=== PATIENT | male | born 1960 | race Caucasian/White ===

== ENCOUNTER → 2016-09-19 | Outpatient (REF) | payer BC | LOC: M LAB REF 16:32 | PROVIDERS: ATTEND Physician Assistant | DX: J02.9 Acute pharyngitis, unspecified (principal) ==

== ENCOUNTER 2016-11-05 04:25 | Emergency (ER) | payer BC ==
[~2016-11-05] VITALS: Ht 180.3 cm; Wt 79.4 kg
[2016-11-05] MEDS ORDERED: MORPHINE 4 MG/ML 1ML SYRINGE IV ONE (05:15)
[2016-11-05 05:42] LABS: BASO % 0.6 % (0.0-1.0); EOS # 0.2 K/mm3 (0.0-0.50); EOS % 2.5 % (0.0-3.0); LARGE UNSTAINED CELL # 0.1 K/mm3 (0.0-0.4); LARGE UNSTAINED CELL % 1.8 % (0.0-4.0); LYMPH # 1.5 K/mm3 (1.5-4.5); LYMPH % 23.7 % (24.0-44.0); MEAN CORPUSCULAR HEMOGLOBIN 31.9 pg (27.0-33.0); MEAN CORPUSCULAR VOLUME 93.9 fl (80.0-96.0); MONO # 0.5 K/mm3 (0.0-0.8); MONO % 8.3 % (0.0-5.0); NEUTROPHILS # 3.8 K/mm3 (1.8-7.7); NEUTROPHILS % 63.1 % (36.0-66.0); PLATELET COUNT, AUTOMATED 214 k/mm3 (150-450)
[2016-11-05 05:49] LABS: INR 0.97
[2016-11-05 06:01] LABS: ANION GAP 5 MEQ/L (8-16); BLOOD UREA NITROGEN 15 MG/DL (7-18); CALCIUM LEVEL 8.2 MG/DL (8.5-10.1); CARBON DIOXIDE LEVEL 29 MEQ/L (21-32); CHLORIDE LEVEL 108 MEQ/L (98-107); CREATININE FOR GFR 0.82 MG/DL (0.70-1.30); GLOMERULAR FILTRATION RATE > 60.0 (>56); GLUCOSE, FASTING 109 MG/DL (70-105); POTASSIUM SERUM 3.9 MEQ/L (3.5-5.1); SODIUM LEVEL 142 MEQ/L (136-145)
[2016-11-05] MEDS ORDERED: ISOVUE-370 76% 100ML VIAL (Q9967) As Ordered ONE (06:20)
[2016-11-05] MEDS ORDERED: KETOROLAC 30 MG/ML VIAL (J1885) IV ONE (07:00)
[2016-11-05] MEDS ORDERED: dexameTHASONE 20 MG/5 ML VIAL (J1100) IV ONE (07:00)
--- NOTE | 2016-11-05 07:00 | REPUSA ---
CLINICAL HISTORY: Chest pain, exclude PE. TECHNIQUE: Multiple incremental axial, coronal and oblique images are obtained from the thoracic inle t to the upper abdomen. Intravenous contrast material was administered as per pulmonary embolism prot ocol. COMMENTS: Small left pleural effusion. Passive atelectatic airspace disease of the left lower lobe. Atelectatic airspace disease in the right lower lobe. There is excellent opacification of pulmonary arterial system without evidence for pulmonary embolism . Aorta is of normal caliber without evidence for dissection or aneurysm. There is no evidence of pleural or parenchymal mass. There is no evidence of hilar or mediastinal lym phadenopathy. The heart and great vessels are within normal limits. Images of the upper abdomen demonstrate no evidence of adrenal mass. The bony structures are free of lytic or blastic lesions. Small sliding hiatal hernia. IMPRESSION: No evidence for pulmonary embolism. Small left pleural effusion. Passive atelectatic airspace disease of the left lower lobe. Atelectatic airspace disease of the right lower lobe. Thank you for your kind referral of this patient.
[2016-11-05] MEDS ORDERED: ZITHTAB PO (07:04)
[2016-11-05] MEDS ORDERED: PRED20TA PO (07:05)
[2016-11-05] MEDS ORDERED: KETO10TAB PO (07:06)
[2016-11-05 08:43] VITALS: BP 112/60
--- NOTE | 2016-11-05 09:29 | REP ---
CHEST, TWO VIEWS: Two views of the chest are performed and compared to prior study of 03/16/2006. There is a small left effusion with adjacent left basilar atelectasis/infiltrate. Right lung is clear. Heart is normal in size. Mediastinal silhouette is unremarkable. Old healed fracture is noted in the midshaft of the right clavicle. IMPRESSION: Small left effusion with mild left basilar atelectasis/infiltrate. Signed by Reyes Vargas MD 11/05/2016 02:24 P
--- NOTE | 2016-11-05 13:51 | ECGEPIP ---
Stationary ECG Study [facility] - ED Test Date: 2016-11-05 Pat Name: YADIRA SETH Department: Room: - Gender: M Manager Rehab: YOUNG : 1960 Requested By: BACILIO HAINES Order Number: [id number] Reading MD: Dora Wyatt Measurements Intervals [place] Rate: 47 P: 38 DE: 174 QRS: -6 QRSD: 97 T: 3 QT: 425 QTc: 379 Interpretive Statements SINUS BRADYCARDIA WITH SINUS ARRHYTHMIA NSTTW ABNORMALITY, CLINICAL CORRELATION FOR SUBTLE ST ELEVATION NO PRIOR FOR COMPARISON Electronically Signed On 11-05-2016 13:51:32 EDT by Dora Wyatt
== END 2016-11-05 08:45 | disposition home or self-care (01) ==
LOC: M ED 06:14
DX: R07.81 Pleurodynia (principal); J98.11 Atelectasis; J18.9 Pneumonia, unspecified organism; J90 Pleural effusion, not elsewhere classified; R01.1 Cardiac murmur, unspecified; I49.9 Cardiac arrhythmia, unspecified; R94.31 Abnormal electrocardiogram [ECG] [EKG]; Z87.891 Personal history of nicotine dependence
CPT/HCPCS: 71020; 71275; 80048; 82550; 82553; 85025; 85610; 85730; 93005; 96374; 96375; 99283; J1100; J1885; Q9967

== ENCOUNTER 2016-11-18 08:30 | Emergency (ER) | payer BC, OTHER ==
[~2016-11-18] VITALS: Ht 180.3 cm; Wt 77.1 kg
[~2016-11-18 08:30] MED LIST: KETO10TAB PO; PRED20TA PO; ZITHTAB PO
[2016-11-18 08:59] VITALS: BP 135/88
[2016-11-18] MEDS ORDERED: VALI2TAB PO (10:27)
[2016-11-18] MEDS ORDERED: NAPR500T2 PO (10:27)
[2016-11-18] MEDS ORDERED: ROBA750T4 PO (10:27)
[2016-11-18] MEDS ORDERED: PERC5TAB6 PO (10:27)
[2016-11-18] MEDS ORDERED: PERCOCET 5MG/325MG TAB PO ONE (10:30)
== END 2016-11-18 10:48 | disposition home or self-care (01) ==
LOC: M ED 10:29
DX: S39.012A Strain of muscle, fascia and tendon of lower back, initial encounter (principal); X50.0XXA Overexertion from strenuous movement or load, initial encounter; Y92.89 Other specified places as the place of occurrence of the external cause; Y93.89 Activity, other specified; Y99.0 Civilian activity done for income or pay; Z87.891 Personal history of nicotine dependence

== ENCOUNTER → 2016-12-09 | Outpatient (REF) | payer BC ==
[~2016-12-09] MED LIST changes: +NAPR500T2 PO; +PERC5TAB6 PO; +ROBA750T4 PO; +VALI2TAB PO
== END ==
LOC: M SFHCPLAZ 10:20
PROVIDERS: ATTEND Nurse Practitioner Adult Health
DX: R73.9 Hyperglycemia, unspecified (principal); Z00.00 Encounter for general adult medical examination without abnormal findings; R53.83 Other fatigue
CPT/HCPCS: 36415; 80061; 83036; 84443; G0103

== ENCOUNTER → 2017-11-05 | Outpatient (REF) | payer BC | LOC: M LAB REF 17:43 | DX: D48.5 Neoplasm of uncertain behavior of skin (principal) | CPT/HCPCS: 88305 ==

== ENCOUNTER → 2017-11-24 | Outpatient (REF) | payer BC | LOC: M LAB REF 20:37 | DX: L72.3 Sebaceous cyst (principal) | CPT/HCPCS: 88304 ==

== ENCOUNTER → 2019-08-31 | Outpatient (CLI) | payer BC ==
[~2019-08-31] MED LIST changes: +NAPR-885 PO; -NAPR500T2 PO; +PERC5TAB12 PO; -PERC5TAB6 PO
--- NOTE | 2019-08-31 14:42 | REP ---
PA and lateral chest: Comparison is 11/05/2016. The lung goff are mildly hyperinflated. The lung goff are clear. The cardiac size is normal. The pal, mediastinum, and skeletal structures are unremarkable. Impression: Negative PA and lateral chest. The small left pleural effusion and left basilar atelectasis on the prior study have resolved. Electronically Signed by Reyes Orellana MD 08/31/2019 02:33 P
== END ==
LOC: M WUC 10:30
PROVIDERS: ATTEND Physician Assistant
DX: R07.9 Chest pain, unspecified (principal)

== ENCOUNTER → 2020-06-26 | Outpatient (REF) | payer BC ==
[2020-06-26 17:50] LABS: HEMATOCRIT 43.8 % (42.0-52.0); HEMOGLOBIN 14.1 g/dl (13.5-17.5); MEAN CORPUSCULAR HEMOGLOBIN 30.7 pg (27.0-33.0); MEAN CORPUSCULAR HGB CONC 32.2 g/dl (32.0-36.5); MEAN CORPUSCULAR VOLUME 95.4 fl (80.0-96.0); PLATELET COUNT, AUTOMATED 229 10^3/uL (150-450); RED BLOOD COUNT 4.59 10^6/uL (4.30-6.10); WHITE BLOOD COUNT 5.3 10^3/uL (4.0-10.0)
[2020-06-26 18:06] LABS: HEMOGLOBIN A1c 5.4 %
[2020-06-26 18:29] LABS: ALBUMIN 3.7 GM/DL (3.2-5.2); ALT/SGPT 29 U/L (12-78); BILIRUBIN,TOTAL 0.3 MG/DL (0.2-1.0); BLOOD UREA NITROGEN 16 MG/DL (7-18); CALCIUM LEVEL 8.6 MG/DL (8.5-10.1); CARBON DIOXIDE LEVEL 30 MEQ/L (21-32); CHLORIDE LEVEL 105 MEQ/L (98-107); CREATININE FOR GFR 1.14 MG/DL (0.70-1.30); FERRITIN 123 NG/ML (26-388); GLOMERULAR FILTRATION RATE > 60.0 (>56); GLUCOSE, FASTING 91 MG/DL (70-100); IRON (FE) 84 UG/DL (65-175); PERCENT SATURATION 25.1 % (19.7-50.0); POTASSIUM SERUM 4.3 MEQ/L (3.5-5.1); SODIUM LEVEL 138 MEQ/L (136-145); TOTAL IRON BINDING CAPACITY 334 UG/DL (250-450); TOTAL PROTEIN 6.9 GM/DL (6.4-8.2)
[2020-06-28 13:08] LABS: IgG P18 AB Absent (.); IgG P23 AB Absent (.); IgG P28 AB Absent (.); IgG P30 AB Absent (.); IgG P39 AB Absent (.); IgG P41 AB Absent (.); IgG P45 AB Absent (.); IgG P66 AB Absent (.); IgG P93 AB Absent (.); IgM P23 AB Absent (.); IgM P39 AB Present (.); IgM P41 AB Absent (.); LYME IgG WB INTERPRETATION Negative (.); LYME IgM WB INTERPRETATION Negative (.)
== END ==
LOC: M SFHCPLAZ 15:13
PROVIDERS: ATTEND Nurse Practitioner Adult Health
DX: R53.83 Other fatigue (principal); R73.9 Hyperglycemia, unspecified

== ENCOUNTER → 2020-09-08 | Outpatient (CLI) | payer BC | LOC: M LABSMTC 08:07 | PROVIDERS: ATTEND Anesthesiology | DX: Z01.812 Encounter for preprocedural laboratory examination (principal); Z20.822 Contact with and (suspected) exposure to COVID-19 ==

== ENCOUNTER 2020-09-13 09:12 | Day surgery (SDC) | payer BC ==
[~2020-09-13] VITALS: Ht 180.3 cm; Wt 86.2 kg
[~2020-09-13 09:12] MED LIST changes: +NS 1,000 ML IV ONE
--- OUTSIDE RECORDS SUMMARY | 2020-09-13 09:18 | CCD ---
Author Author [facility] Organization [facility] Address Unknown Phone Unavailable Care Team Providers Care Mortgage Loan Originator Name Role Phone CELISIRENA PA Unavailable Unavailable CELI, SIRENA PA Unavailable Unavailable CELI, SIRENA PA Unavailable Unavailable CELI, SIRENA PA Unavailable Unavailable CELI, SIRENA PA Unavailable Unavailable CELI, SIRENA PA Unavailable Unavailable CELI, SIRENA PA Unavailable Unavailable CELI, SIRENA PA Unavailable Unavailable CELI, SIRENA PA Unavailable Unavailable CELI, SIRENA PA Unavailable Unavailable CELI, SIRENA PA Unavailable Unavailable CELI, SIRENA PA Unavailable Unavailable CELI, SIRENA PA Unavailable Unavailable CELI, SIRENA PA Unavailable Unavailable CELI, SIRENA PA Unavailable Unavailable CELI, SIRENA PA Unavailable Unavailable CELI, SIRENA PA Unavailable Unavailable CELI, SIRENA PA Unavailable Unavailable CELI, SIRENA PA Unavailable Unavailable CELI, SIRENA PA Unavailable Unavailable CELI, SIRENA PA Unavailable Unavailable CELI, SIRENA PA Unavailable Unavailable CELI, SIRENA PA Unavailable Unavailable CELI, SIRENA PA Unavailable Unavailable CELI, SIRENA PA Unavailable Unavailable CELI, SIRENA PA Unavailable Unavailable CELI, SIRENA PA Unavailable Unavailable CELI, SIRENA PA Unavailable Unavailable CELI, SIRENA PA Unavailable Unavailable CELI, SIRENA PA Unavailable Unavailable CELI, SIRENA PA Unavailable Unavailable CELI, SIRENA PA Unavailable Unavailable CELI, SIRENA PA Unavailable Unavailable CELI, SIRENA PA Unavailable Unavailable CELI, SIRENA PA Unavailable Unavailable CELI, SIRENA PA Unavailable Unavailable CELI, SIRENA PA Unavailable Unavailable CELI, SIRENA PA Unavailable Unavailable CELI, SIRENA PA Unavailable Unavailable Re-disclosure Warning The records that you are about to access may contain information from federally-assisted alcohol or drug abuse programs. If such information is present, then the following federally mandated warning applies: This information has been disclosed to you from records protected by federal confidentiality rules (42 CFR part 2). The federal rules prohibit you from making any further disclosure of this information unless further disclosure is expressly permitted by the written consent of the person to whom it pertains or as otherwise permitted by 42 CFR part 2. A general authorization for the release of medical or other information is NOT sufficient for this purpose. The Federal rules restrict any use of the information to criminally investigate or prosecute any alcohol or drug abuse patient.The records that you are about to access may contain highly sensitive health information, the redisclosure of which is protected by Article 27-F of the [facility] Public Health law. If you continue you may have access to information: Regarding HIV / AIDS; Provided by facilities licensed or operated by the [facility] Office of Mental Health; or Provided by the [facility] Office for People With Developmental Disabilities. If such information is present, then the following [facility] mandated warning applies: This information has been disclosed to you from confidential records which are protected by state law. State law prohibits you from making any further disclosure of this information without the specific written consent of the person to whom it pertains, or as otherwise permitted by law. Any unauthorized further disclosure in violation of state law may result in a fine or fdc sentence or both. A general authorization for the release of medical or other information is NOT sufficient authorization for further disc losure. Family History Family Member Name Family Member Gender Family Member Status Date o f Status Description Data Source(s) Unknown Male Problem MEDENT ([facility]) () Unknown Unknown Problem MEDENT ([facility]) Unknown Female Problem MEDENT ([facility]) Encounters Encounter Providers Location Date Indications Data Source(s ) [place] [address] [address] 07/11/2020 12:00:00 AM EST eCW1 ([facility]) [place] [address] [address] 06/26/2020 12:00:00 AM EST eCW1 ([facility]) Outpatient Attender: SIRENA Whiting Prima ry 08/31/2019 08:45:00 AM EST MEDENT ([facility]) Outpatient Attender: SIRENA Whiting Prima ry 08/29/2019 03:40:00 PM EST MEDENT ([facility], [facility]) Medications Medication Brand Name Start Date Product Form Dose Route Admi nistrative Instructions Pharmacy Instructions Status Indications Reaction Description Data Source(s) Fluticasone Propionate 50 MCG/ACT Fluticasone Propionate 50 MCG/ACT 06/26/2020 12:00:00 AM EST 1.0 {spray_in_each_nostril} acti ve Fluticasone Propionate 50 MCG/ACT eCW1 ([facility]) Loratadine 10 MG Oral Tablet Loratadine 10 MG 06/26/2020 12:00:00 A M EST 1.0 {tablet} active Loratadine 10 MG eCW1 ( [facility]) Fluticasone Propionate 50 MCG/ACT Fluticasone Propionate 50 MCG/ACT 06/26/2020 12:00:00 AM EST 1.0 {spray_in_each_nostril} acti ve Fluticasone Propionate 50 MCG/ACT eCW1 ([facility]) Loratadine 10 MG Oral Tablet Loratadine 10 MG 06/26/2020 12:00:00 A M EST 1.0 {tablet} active Loratadine 10 MG eCW1 ( [facility]) Methylprednisolone Sodium Succinate To 125 MG 08/31/2019 1 2:00:00 AM EST completed MEDENT ([facility]) Medication administered onsite Methylprednisolone 4 MG Oral Tablet Methylprednisolone 11/2019 12:00:00 AM EST ORAL active MEDENT ([facility]) 4 mg 08/31/2019 12:00:00 AM EST tablets,dose pack 21 DIRECTED DIRECTED SOLD: 08/31/2019 [facility] Xofluza Xofluza 08/29/2019 12:00:00 AM EST ORAL complet ed MEDENT ([facility], [facility]) Oseltamivir 75 MG Oral Capsule Oseltamivir Phosphate 08/29/2019 12:00:00 AM EST ORAL active MEDENT ( [facility], [facility]) 75 mg 08/29/2019 12:00:00 AM EST capsule 10 TAKE ONE CAPSULE BY MOUTH TWICE A DAY FOR 5 DAYS TAKE ONE CAPSULE BY MOUTH TWICE A DAY FOR 5 DAYS SOLD: 08/29/2019 [facility] Insurance Providers Payer name Policy type / Coverage type Policy ID Covered democrat ID Covered democrat's relationship to priest Policy Priest Plan Information [employer] [place] 302/307 [id number] SP [id number] [employer] [place]/307 [id number] SP [id number] ANSI-Commercial [id number] [employer] (HMO) [id number] Family Dependent [id number] [employer] (HMO) [id number] Family Dependent [id number] [employer] [place] PPO 302/307 [id number] SP [id number] TRAVELERS WORKER COMP [id number] SP [id number] MELISSA MATERIALS [id number] SP [id number] [employer] [place] PPO 302/307 [id number] BCBS/Blue Card Medigap Part B [id number] Self [id number] [employer] Workers Compensation [id number] Self [id number] [employer] Workers Compensation Self BCBS/Blue Card Commercial Self BS [facility] Medigap Part B Family Dependent BS [facility] Commercial Self [employer] BCBS B [id number] S VYA [id number] O UNAVAILABLE UNAVAILA BLE Results ID Date Data Source [id number] 09/08/2020 09:00:00 AM EST [facility] Name Value Range Interpretation Code Description Data Marta rce(s) Supporting Document(s) SARS coronavirus 2 RNA Not Detected [facility] [place] This lab was ordered by [facility] and reported by [facility]. ID Date Data Source TSH 06/26/2020 12:00:00 AM EST eCW1 ([facility]) Name Value Range Interpretation Code Description Data Marta rce(s) Supporting Document(s) 1.260 0.358-3.740 THYROID STIMULATING HORM ONE eCW1 ([facility]) ID Date Data Source TOTAL IRON BINDING CAPACIT 06/26/2020 12:00:00 AM EST eCW1 ( [facility]) Name Value Range Interpretation Code Description Data Marta rce(s) Supporting Document(s) 334 250-450 TOTAL IRON BINDING CAPACI TY eCW1 ([facility]) 84 65-175 IRON (FE) eCW1 ([facility]) 25.1 19.7-50.0 PERCENT SATURATION eCW1 ([facility]) ID Date Data Source LYME WESTERN BLOT SERUM 06/26/2020 12:00:00 AM EST eCW1 ([facility]) Name Value Range Interpretation Code Description Data Marta rce(s) Supporting Document(s) LYME WESTERN BLOT SERUM eCW1 ( [facility]) ID Date Data Source [id number] 06/26/2020 12:00:00 AM EST eCW1 ([facility]) Name Value Range Interpretation Code Description Data Marta rce(s) Supporting Document(s) Hemoglobin A1c/Hemoglobin.total in Blood 5.4 HEMOGLOBIN A1c eCW1 ([facility]) ID Date Data Source FERRITIN 06/26/2020 12:00:00 AM EST eCW1 ([facility]) Name Value Range Interpretation Code Description Data Marta rce(s) Supporting Document(s) 123 93-388 FERRITIN eCW1 ([facility]) ID Date Data Source Comprehensive Metabolic Profile (CMP) 06/26/2020 12:00:00 AM EST eCW1 ([facility]) Name Value Range Interpretation Code Description Data Marta rce(s) Supporting Document(s) 91 70-100 GLUCOSE, FASTING eCW1 ([facility]) 16 7-18 BLOOD UREA NITROGEN eCW1 ([facility]) 1.14 0.70-1.30 CREATININE FOR GFR eCW1 ([facility]) > 60.0 >56 GLOMERULAR FILTRATION RATE eCW 1 ([facility]) 138 136-145 SODIUM LEVEL eCW1 ([facility]) 105 98-107 CHLORIDE LEVEL eCW1 ([facility]) 30 21-32 CARBON DIOXIDE LEVEL eCW1 ([facility]) 4.3 3.5-5.1 POTASSIUM SERUM eCW1 ([facility]) 8.6 8.5-10.1 CALCIUM LEVEL eCW1 ([facility]) 64 45-117 ALKALINE PHOSPHATASE eCW1 ([facility]) 29 12-78 ALT/SGPT eCW1 ([facility]) 19 7-37 AST/SGOT eCW1 ([facility]) 0.3 0.2-1.0 BILIRUBIN,TOTAL eCW1 ([facility]) 6.9 6.4-8.2 TOTAL PROTEIN eCW1 ([facility]) 3.7 3.2-5.2 ALBUMIN eCW1 ([facility]) 1.2 ALBUMIN/GLOBULIN RATIO eCW1 ([facility]) ID Date Data Source CBC - Complete Blood Count 06/26/2020 12:00:00 AM EST eCW1 ( [facility]) Name Value Range Interpretation Code Description Data Marta rce(s) Supporting Document(s) 5.3 4.0-10.0 WHITE BLOOD COUNT eCW1 ([facility]) 4.59 4.30-6.10 RED BLOOD COUNT eCW1 ([facility]) 14.1 13.5-17.5 HEMOGLOBIN eCW1 ([facility]) 95.4 80.0-96.0 MEAN CORPUSCULAR VOLUME e CW1 ([facility]) 43.8 42.0-52.0 HEMATOCRIT eCW1 ([facility]) 32.2 32.0-36.5 MEAN CORPUSCULAR HGB CONC eCW1 ([facility]) 229 150-450 PLATELET COUNT, AUTOMATED eCW1 ([facility]) 11.8 11.5-14.5 RED CELL DISTRIBUTION WID TH eCW1 ([facility]) 30.7 27.0-33.0 MEAN CORPUSCULAR HEMOGLOB IN eCW1 ([facility]) Procedure Social History Code Duration Value Status Description Data Source(s ) Smoking 06/26/2020 12:00:00 AM EST Never Smoker completed Never S moker eCW1 ([facility]) Smoking 06/26/2020 12:00:00 AM EST Never Smoker completed Never S moker eCW1 ([facility]) Vital Signs ID Date Data Source UNK Name Value Range Interpretation Code Description Data Source(s) Diastolic blood pressure 78 mm[Hg] 78 mm[Hg] eCW1 ([facility]) Systolic blood pressure 132 mm[Hg] 132 mm[Hg] e CW1 ([facility]) Body temperature 98.7 [degF] 98.7 [degF] eCW1 ( [facility]) Respiratory rate 18 /min 18 /min eCW1 ([facility]) Heart rate 72 /min 72 /min eCW1 ([facility]) Body mass index (BMI) [Ratio] 26.92 kg/m2 26.92 kg/m2 eCW1 ([facility]) Body height [in_i] eCW1 ([facility]) Body weight 193 [lb_av] 193 [lb_av] eCW1 ([facility]) Body mass index (BMI) [Ratio] 25.8 kg/m2 25.8 k g/m2 MEDENT ([facility]) Body height 71 [in_i] 71 [in_i] MEDENT ([facility]) 5'11" Body weight 185.00 [lb_av] 185.00 [lb_av] MEDEN T ([facility], [facility]) Body temperature 97.8 [degF] 97.8 [degF] MEDENT ([facility], [facility]) Oxygen saturation in Arterial blood by Pulse oximetry 98 % 98 % [facility] Respiratory rate 18 /min 18 /min [facility]) Heart rate 75 /min 75 /min [facility] ([facility], [facility]) Diastolic blood pressure 94 mm[Hg] 94 mm[Hg] MEDENT ([facility], [facility]) Systolic blood pressure 135 mm[Hg] 135 mm[Hg] [facility]) Body mass index (BMI) [Ratio] 25.8 kg/m2 25.8 k g/m2 [facility] ([facility], [facility]) Body height 71 [in_i] 71 [in_i] [facility] ([facility], [facility]) 5'11" Body weight 185.00 [lb_av] 185.00 [lb_av] MEDEN T ([facility], [facility]) Body temperature 98.0 [degF] 98.0 [degF] [facility]) Oxygen saturation in Arterial blood by Pulse oximetry 94 % 94 % [facility], [facility]) Respiratory rate 16 /min 16 /min [facility] ( [facility], [facility]) Heart rate 81 /min 81 /min [facility] ([facility], [facility]) Diastolic blood pressure 89 mm[Hg] 89 mm[Hg] [facility] ([facility], [facility]) Systolic blood pressure 141 mm[Hg] 141 mm[Hg] [facility]) Patient Treatment Plan of Care Planned Activity Planned Date Details Description Data Source (s) Fluticasone Propionate 50 MCG/ACT 06/26/2020 12:00:00 AM EST eCW1 ([facility]) Loratadine 10 MG Oral Tablet 06/26/2020 12:00:00 AM EST eCW1 ([facility]) Fluticasone Propionate 50 MCG/ACT 06/26/2020 12:00:00 AM EST eCW1 ([facility]) Loratadine 10 MG Oral Tablet 06/26/2020 12:00:00 AM EST eCW1 ([facility])
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
--- OUTSIDE RECORDS SUMMARY | 2020-09-13 09:18 | CCD ---
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 Name Role Phone Baljitmonica Christal Unavailable PROBLEMS Type Condition ICD9-CM Code OFE36-LS Code Onset Dates Condition S tatus SNOMED Code Notes Problem Family history of prostate cancer in father Z80.42 Active 316544130 Problem Skin lesion L98.9 Active 11073843 Problem Midline low back pain without sciatica, unspecified ch ronicity M54.5 Active 195207280 Problem Elevated blood sugar R73.9 Active 91198008 Problem History of tobacco abuse Z87.891 Active 2067137 064052 Problem Fatigue, unspecified type R53.83 Active 473342 01 ALLERGIES No Known Allergies ENCOUNTERS from 1960 to 2020-07-02 Encounter Location Date Provider Diagnosis [address] [address] Jun, Christal Ceron Well adult exam Z00.00 ; Fatigue, unspec ified type R53.83 ; Lack of interest R68.89 ; History of tobacco abuse Z87.891 ; Elevated blood sugar R73.9 ; Altered bowel function R19.8 ; Dysfunction of both eustachian tubes H69.83 and Impacted cerumen of both ears H61.23 IMMUNIZATIONS No Information SOCIAL HISTORY Tobacco Use: Social History Observation Description Date Details (start date - stop date) Never Smoker Sex Assigned At : Social History Observation Description Sex Assigned At Unknown Education: Question Answer Notes Level of Education: High School [employer] [facility] Language: Question Answer Notes Languages spoken: [place] Confucianist: Question Answer Notes Confucianist 23 Confucianism No temple beliefs that would impact health care. Sexual [...] REASON FOR REFERRAL No Information VITAL SIGNS Weight 193 lbs Jun, Height 5'11" in Jun, BMI 26.92 kg/m2 Jun, Heart Rate 72 /min Jun, Respiratory Rate 18 /min Jun, Temperature 98.7 degrees Fahrenheit Jun, Oximetry 98 Jun, Blood pressure systolic 132 mm Hg Jun, Blood pressure diastolic 78 mm Hg Jun, MEDICATIONS Medication SIG (Take, Route, Frequency, Duration) Notes Start Da te End Date Status Loratadine 10 MG 1 tablet Orally Once a day for 30 day(s) Jun, Active Fluticasone Propionate 50 MCG/ACT 1 spray in each nost ril Nasally Once a day for 30 day(s) Jun, Active PROCEDURES No Information RESULTS Component Value Reference Range CBC - Complete Blood Count Reviewed date:07/01/2020 09:08:23 Interpretation:Normal Performing Lab:[facility], [facility] [id number] , ,[place] [address] WHITE BLOOD COUNT 5.3 4.0-10.0 RED BLOOD COUNT 4.59 4.30-6.10 HEMOGLOBIN 14.1 13.5-17.5 HEMATOCRIT 43.8 42.0-52.0 MEAN CORPUSCULAR VOLUME 95.4 80.0-96.0 MEAN CORPUSCULAR HEMOGLOBIN 30.7 27.0-33.0 MEAN CORPUSCULAR HGB CONC 32.2 32.0-36.5 RED CELL DISTRIBUTION WIDTH 11.8 11.5-14.5 PLATELET COUNT, AUTOMATED 229 150-450 Comprehensive Metabolic Profile (CMP) Reviewed date:07/01/2020 09:06:50 Interpretation:Normal Performing Lab:[facility] [address] [address] , ,[place] [address] GLUCOSE, FASTING 91 70-100 BLOOD UREA NITROGEN 16 7-18 CREATININE FOR GFR 1.14 0.70-1.30 GLOMERULAR FILTRATION RATE > 60.0 >56 SODIUM LEVEL 138 136-145 POTASSIUM SERUM 4.3 3.5-5.1 CHLORIDE LEVEL 105 98-107 CARBON DIOXIDE LEVEL 30 21-32 CALCIUM LEVEL 8.6 8.5-10.1 AST/SGOT 19 7-37 ALT/SGPT 29 12-78 ALKALINE PHOSPHATASE 64 45-117 BILIRUBIN,TOTAL 0.3 0.2-1.0 TOTAL PROTEIN 6.9 6.4-8.2 ALBUMIN 3.7 3.2-5.2 ALBUMIN/GLOBULIN RATIO 1.2 FERRITIN Reviewed date:07/01/2020 09:09:21 Interpretation:Normal Performing Lab:[facility] [address] [address] , ,[place] [address] FERRITIN 123 26-388 HEMOGLOBIN A1c Reviewed date:07/01/2020 09:06:33 Interpretation:Normal Performing Lab:[facility] [address] [address] , ,[place] [address] HEMOGLOBIN A1c 5.4 ESTIMATED AVERAGE GLUCOSE 108 60-110 LYME WESTERN BLOT SERUM Reviewed date:07/01/2020 09:08:04 Interpretation:Negative Performing Lab:[facility], [facility] [address] [place] [address] , ,[place] [address] TOTAL IRON BINDING CAPACIT Reviewed date:07/01/2020 09:08:41 Interpretation:Normal Performing Lab:[facility] [address] [address] , ,[place] [address] IRON (FE) 84 65-175 TOTAL IRON BINDING CAPACITY 334 250-450 PERCENT SATURATION 25.1 19.7-50.0 TSH Reviewed date:07/01/2020 09:09:00 Interpretation:Normal Performing Lab:[facility], [facility] [id number] , ,[place] [address] THYROID STIMULATING HORMONE 1.260 0.358-3.740 REASON FOR VISIT Annual Wellness , last seen 10/13/17 MEDICAL (GENERAL) HISTORY Type Description Date Medical [...] Treatment Notes Treatm ent Clinical Notes Jun, Well adult exam (ICD-10 - Z00.00) age appropriate anticipatory guidance given, per USPSTF recommendations; idiscussed plans for implementing improvement in identified areas Jun, Fatigue, unspecified type (ICD-10 - R53.83) discussed with pt will assess labs discussed with pt ? sleep apnea pt refuses referral Jun, Lack of interest (ICD-10 - R68.89) discussed with pt. discussed ? depression pt flately refuses that he is depressed Jun, History of tobacco abuse (ICD-10 - Z87.891) Jun, Elevated blood sugar (ICD-10 - R73.9) reassess hga1c Jun, Altered bowel function (ICD-10 - R19.8) request screening colonoscopy he also has issues with constipation discussed fiber, metamucil Jun, Dysfunction of both eustachian tubes (ICD-10 - H 69.83) will treat with flonase and lortadine Jun, Impacted cerumen of both ears (ICD-10 - H61.23) pt states he will clean them at home/ Jun, Other follow up sched uled PLAN OF TREATMENT Medication Medication Name Sig Start Date Stop Date Loratadine 10 MG 1 tablet Orally Once a day for 30 day(s) Jun Fluticasone Propionate 50 MCG/ACT 1 spray in each nost ril Nasally Once a day for 30 day(s) Jun, Treatment Notes Assessment Notes Clinical Notes Well adult exam age appropriate anti cipatory guidance given, per USPSTF recommendations; idiscussed plans for implementing improvement in identified areas Fatigue, unspecified type discussed with pt will assess labs discussed with pt ? sleep apnea pt refuses referral Lack of interest discussed with pt. d iscussed ? depression pt flately refuses that he is depressed Elevated blood sugar reassess hga1c Altered bowel function request screening colonoscopy he also has issues with constipation discussed fiber, metamucil Dysfunction of both eustachian tubes jude l treat with flonase and lortadine Impacted cerumen of both ears pt states he will clean them at home/ Treatment Notes Test Name Order Date IRON (FE) 2020-07-02 Next Appt Details Christal 07/10/20 4pm book issues Reason: Insurance Providers Payer Name Payer Address Payer Phone Insured Name Patient Relati onship to Insured Coverage Start Date Coverage End Date BCBS [place] [employer] PPO [phone] [facility] [employer] [address] YADIRA NICOLAS self
[2020-09-13] MEDS ORDERED: propofoL 200 MG/20 ML VIAL As Ordered ONE (11:02)
--- NOTE | 2020-09-13 11:34 | ROOR ---
Patient Name: Ward Nicolas Procedure Date: 09/13/2020 10:38 AM Date of : 1960 Age: 59 [facility] Gender: Male Note Status: Finalized Procedure: Colonoscopy Indications: Screening for colorectal malignant neoplasm Providers: Sukhdeep Wheeler MD Referring MD: Christal Ceron NP Requesting Provider: Medicines: Monitored Anesthesia Care Complications: No immediate complications. Procedure: Pre-Anesthesia Assessment: - Prior to the procedure, a History and Physical was performed, and patient medications and allergies were reviewed. The patient is competent. The risks and benefits of the procedure and the sedation options and risks were discussed with the patient. All questions were answered and informed consent was obtained. Patient identification and proposed procedure were verified by the physician, the nurse and the anesthesiologist in the procedure room. Mental Status Examination: alert and oriented. Airway Examination: normal oropharyngeal airway and neck mobility. Respiratory Examination: clear to auscultation. CV Examination: normal. Prophylactic Antibiotics: The patient does not require prophylactic antibiotics. Prior Anticoagulants: The patient has taken no previous anticoagulant or antiplatelet agents. ASA Grade Assessment: II - A patient with mild systemic disease. After reviewing the risks and benefits, the patient was deemed in satisfactory condition to undergo the procedure. The anesthesia plan was to use monitored anesthesia care (MAC). Immediately prior to administration of medications, the patient was re-assessed for adequacy to receive sedatives. The heart rate, respiratory rate, oxygen saturations, blood pressure, adequacy of pulmonary ventilation, and response to care were monitored throughout the procedure. The physical status of the patient was re-assessed after the procedure. The Colonoscope was introduced through the anus and advanced to the terminal ileum, with identification of the appendiceal orifice and IC valve. The colonoscopy was performed without difficulty. The patient tolerated the procedure well. The quality of the bowel preparation was good. The terminal ileum, ileocecal valve, appendiceal orifice, and rectum were photographed. Scope insertion time was 2 minutes. Scope withdrawal time was 14 minutes. The total duration of the procedure was 20 minutes. Findings: The perianal and digital rectal examinations were normal. Pertinent negatives include normal sphincter tone. The terminal ileum appeared normal. Many sessile polyps were found in the rectum, sigmoid colon, descending colon, transverse colon and ascending colon. The polyps were 6 to 15 mm in size. These polyps were removed with a hot snare. Resection and retrieval were complete. Verification of patient identification for the specimen was done by the physician and nurse using the patient's name, date and medical record number. Estimated blood loss was minimal. Non-bleeding external and internal hemorrhoids were found during retroflexion. The hemorrhoids were medium-sized. Impression: - The examined portion of the ileum was normal. - Many 6 to 15 mm polyps in the rectum, in the sigmoid colon, in the descending colon, in the transverse colon and in the ascending colon, removed with a hot snare. Resected and retrieved. - Non-bleeding external and internal hemorrhoids. Recommendation: - Patient has a contact number available for emergencies. The signs and symptoms of potential delayed complications were discussed with the patient. Return to normal activities tomorrow. Written discharge instructions were provided to the patient. - Clear liquid diet today, then advance as tolerated to high fiber diet. - Continue present medications. - Miralax 1 capful (17 grams) in 8 ounces of water PO daily for 5 days. - Await pathology results. - Repeat colonoscopy in 1 year for surveillance of multiple polyps. - Telephone GI clinic for pathology results in 2 weeks. - Return to GI clinic in 1 year. - Return to primary care physician. Procedure Code(s): --- Professional --- 67453, Colonoscopy, flexible; with removal of tumor(s), polyp(s), or other lesion(s) by snare technique Diagnosis Code(s): --- Professional --- Z12.11, Encounter for screening for malignant neoplasm of colon K64.8, Other hemorrhoids K62.1, Rectal polyp K63.5, Polyp of colon CPT copyright 2019 [employer]. All rights reserved. The codes documented in this report are preliminary and upon hardness tester review may be revised to meet current compliance requirements. Sukhdeep Wheeler MD Sukhdeep Wheeler MD 09/13/2020 11:33:52 AM Electronically signed by Sukhdeep Wheeler MD Number of Addenda: 0 Note Initiated On: 09/13/2020 10:38 AM Estimated Blood Loss: Estimated blood loss was minimal.
[2020-09-13 11:50] VITALS: BP 110/80
== END 2020-09-13 12:05 | disposition home or self-care (01) ==
LOC: M OPP 09:12
PROVIDERS: ATTEND Internal Medicine Gastroenterology
DX: Z12.11 Encounter for screening for malignant neoplasm of colon (principal); D12.2 Benign neoplasm of ascending colon; K64.8 Other hemorrhoids; Z87.891 Personal history of nicotine dependence; Z80.42 Family history of malignant neoplasm of prostate; Z80.1 Family history of malignant neoplasm of trachea, bronchus and lung

== ENCOUNTER → 2021-03-11 | Outpatient (CLI) | payer BC ==
[~2021-03-11] MED LIST changes: -NS 1,000 ML IV ONE
--- NOTE | 2021-03-11 22:34 | REP ---
INDICATION: LUNG CANCER SCREENING COMPARISON: 11/05/2016 TECHNIQUE: Axial noncontrast images from the thoracic inlet to the upper abdomen using low-dose lung screening technique (LDCT). FINDINGS: Lung goff are relatively well aerated and essentially clear. Minimal scarring identified along the medial right middle lobe and left base. No acute consolidation, significant nodule, or mass identified. No effusion. No pneumothorax. Tracheobronchial tree is patent. Mediastinum is grossly normal. IMPRESSION: Lung-RADS category 1. Management recommendations include annual low-dose CT surveillance. <Electronically signed by Tim James > 03/11/21 0532
== END ==
LOC: M RAD 15:48
PROVIDERS: ATTEND Nurse Practitioner Adult Health
DX: Z12.2 Encounter for screening for malignant neoplasm of respiratory organs (principal)

== ENCOUNTER → 2021-10-03 | Outpatient (CLI) | payer BC | LOC: M LABSMTC 10:13 | PROVIDERS: ATTEND Anesthesiology | DX: Z01.818 Encounter for other preprocedural examination (principal); Z11.52 Encounter for screening for COVID-19 ==

== ENCOUNTER 2021-10-08 10:19 | Day surgery (SDC) | payer BC ==
[~2021-10-08] VITALS: Ht 180.3 cm; Wt 81.6 kg
[~2021-10-08 10:19] MED LIST changes: +LIDOCAINE 2% 100MG/5ML SDV (FOR ANES.) As Ordered ONE; +NS 1,000 ML IV ONE; +propofoL 500 MG/50 ML VIAL As Ordered ONE
[2021-10-08 12:33] VITALS: BP 125/79
== END 2021-10-08 12:39 | disposition home or self-care (01) ==
LOC: M OPP 10:19
PROVIDERS: ATTEND Internal Medicine Gastroenterology
DX: K64.8 Other hemorrhoids (principal); Z86.010 Personal history of colon polyps; Z09 Encounter for follow-up examination after completed treatment for conditions other than malignant neoplasm

== ENCOUNTER → 2021-11-28 | Outpatient (CLI) | payer BC ==
[~2021-11-28] MED LIST changes: -LIDOCAINE 2% 100MG/5ML SDV (FOR ANES.) As Ordered ONE; -NS 1,000 ML IV ONE; -propofoL 500 MG/50 ML VIAL As Ordered ONE
[2021-11-28 10:58] LABS: ALBUMIN 3.9 GM/DL (3.2-5.2); ALT/SGPT 33 U/L (12-78); BILIRUBIN,TOTAL 0.4 MG/DL (0.2-1.0); BLOOD UREA NITROGEN 20 MG/DL (7-18); CALCIUM LEVEL 9.8 MG/DL (8.5-10.1); CARBON DIOXIDE LEVEL 29 MEQ/L (21-32); CHLORIDE LEVEL 107 MEQ/L (98-107); CHOLESTEROL LEVEL 283 MG/DL (<200); CHOLESTEROL RISK RATIO 5.775 (<5); CREATININE FOR GFR 0.85 MG/DL (0.70-1.30); GLOMERULAR FILTRATION RATE > 60.0 (>56); GLUCOSE, FASTING 105 MG/DL (70-100); HDL CHOLESTEROL 49 MG/DL (>40); LDL CHOLESTEROL 209 MG/DL (<100); NON-HDL-C 234 MG/DL; POTASSIUM SERUM 5.5 MEQ/L (3.5-5.1); SODIUM LEVEL 140 MEQ/L (136-145); TOTAL PROTEIN 7.2 GM/DL (6.4-8.2); TRIGLYCERIDES LEVEL 126 MG/DL (<150)
[2021-11-28 11:42] LABS: HEMOGLOBIN A1c 5.5 %
== END ==
LOC: M PLALAB 08:02
PROVIDERS: ATTEND Nurse Practitioner Adult Health
DX: Z00.00 Encounter for general adult medical examination without abnormal findings (principal); R73.9 Hyperglycemia, unspecified; Z12.5 Encounter for screening for malignant neoplasm of prostate; Z13.220 Encounter for screening for lipoid disorders
CPT/HCPCS: 36415; 80053; 80061; 83036; G0103

== ENCOUNTER → 2022-12-01 | Outpatient (CLI) | payer BC | LOC: M RAD 08:30 | PROVIDERS: ATTEND Nurse Practitioner Adult Health | DX: Z87.891 Personal history of nicotine dependence (principal) ==

== ENCOUNTER 2023-08-06 09:32 | Emergency (ER) | payer BC, OTHER ==
[~2023-08-06] VITALS: Ht 180.3 cm; Wt 91.0 kg
[2023-08-06 11:43] VITALS: BP 128/86; TEMP 97; O2SAT 97
== END 2023-08-06 11:44 | disposition home or self-care (01) ==
LOC: M ED 09:32
DX: S59.902A Unspecified injury of left elbow, initial encounter (principal); W22.8XXA Striking against or struck by other objects, initial encounter; Z87.891 Personal history of nicotine dependence; Y92.9 Unspecified place or not applicable; Y93.9 Activity, unspecified; Y99.0 Civilian activity done for income or pay

== ENCOUNTER → 2023-08-13 | Outpatient (CLI) | payer BC | LOC: M RAD 15:49 | PROVIDERS: ATTEND Nurse Practitioner Adult Health | DX: N50.89 Other specified disorders of the male genital organs (principal); N44.2 Benign cyst of testis ==

== ENCOUNTER → 2023-09-05 | Outpatient (CLI) | payer BC ==
[2023-09-05 11:25] LABS: APPEARANCE, URINE CLEAR (CLEAR); BACTERIA, URINE AUTO NEGATIVE (NEGATIVE); BILIRUBIN, URINE AUTO NEGATIVE (NEGATIVE); BLOOD, URINE BLOOD NEGATIVE (NEGATIVE); COLOR, URINE YELLOW (YELLOW); GLUCOSE, URINE (UA) AUTO NEGATIVE (NEGATIVE); KETONE, URINE AUTO NEGATIVE (NEGATIVE); LEUKOCYTE ESTERASE, URINE AUTO NEGATIVE (NEGATIVE); MUCUS, URINE SMALL (NEGATIVE); NITRITE, URINE AUTO NEGATIVE (NEGATIVE); PROTEIN, URINE AUTO NEGATIVE (NEGATIVE); RBC, URINE AUTO 0 /HPF (0-3); SPECIFIC GRAVITY URINE AUTO 1.019 (1.002-1.035); SQUAMOUS EPITHELIAL CELL UR AU 0 /HPF (0-6); UROBILINOGEN, URINE AUTO 0.2 mg/dL (0.0-2.0); WBC, URINE AUTO 0 /HPF (0-3)
[2023-09-08 23:07] LABS: TESTOSTERONE FREE (DIRECT) 10.3 pg/mL (6.6-18.1)
== END ==
LOC: M LAB 09:56
PROVIDERS: ATTEND Physician Assistant
DX: R53.83 Other fatigue (principal)

== ENCOUNTER → 2023-10-05 | Outpatient (CLI) | payer BC ==
[~2023-10-05] MED LIST changes: +ROSU10TA6 PO
[2023-10-05 13:47] LABS: BASO # 0.1 10^3/uL (0.0-0.2); BASO % 1.3 % (0.0-1.0); EOS # 0.1 10^3/uL (0.0-0.5); EOS % 1.9 % (0.0-3.0); HEMATOCRIT 45.9 % (42.0-52.0); HEMOGLOBIN 15.6 g/dl (13.5-17.5); LYMPH # 1.5 10^3/uL (1.5-5.0); LYMPH % 31.2 % (24.0-44.0); MEAN CORPUSCULAR VOLUME 94.3 fl (80.0-96.0); MONO # 0.4 10^3/uL (0.0-0.8); MONO % 9.5 % (2.0-8.0); NEUTROPHILS # 2.6 10^3/uL (1.5-8.5); NEUTROPHILS % 55.9 % (36.0-66.0); PLATELET COUNT, AUTOMATED 240 10^3/uL (150-450); RED BLOOD COUNT 4.87 10^6/uL (4.30-6.10); WHITE BLOOD COUNT 4.7 10^3/uL (4.0-10.0)
[2023-10-05 14:02] LABS: HEMOGLOBIN A1c 5.6 % (4.0-6.0)
[2023-10-05 14:14] LABS: ALBUMIN 3.8 G/DL (3.2-5.2); ALKALINE PHOSPHATASE 64 U/L (46-116); ALT/SGPT 25 U/L (7.0-40); AST/SGOT 17 U/L (<34); BILIRUBIN,TOTAL 0.6 MG/DL (0.3-1.2); BLOOD UREA NITROGEN 15 MG/DL (9-23); CALCIUM LEVEL 9.1 MG/DL (8.3-10.6); CARBON DIOXIDE LEVEL 31 MMOL/L (20-31); CHLORIDE LEVEL 102 MMOL/L (98-107); CHOLESTEROL LEVEL 237 MG/DL (<200); CHOLESTEROL RISK RATIO 5.04 (<5); CREATININE FOR GFR 0.89 MG/DL (0.70-1.30); GLOMERULAR FILTRATION RATE > 60.0 (>49); GLUCOSE, FASTING 97 MG/DL (74-106); POTASSIUM SERUM 5.3 MMOL/L (3.5-5.1); PSA SCREENING 3.11 NG/ML (< 4.00); SODIUM LEVEL 138 MMOL/L (136-145); TOTAL PROTEIN 7.1 G/DL (5.7-8.2); TRIGLYCERIDES LEVEL 185 MG/DL (<150)
[2023-10-05 14:16] LABS: FREE T4 1.06 NG/DL (0.89-1.76); THYROID STIMULATING HORMONE 1.387 uIU/ML (0.55-4.78)
== END ==
LOC: M PLALAB 11:18
PROVIDERS: ATTEND Family Medicine
DX: R73.01 Impaired fasting glucose (principal); E78.2 Mixed hyperlipidemia; Z80.42 Family history of malignant neoplasm of prostate; Z87.891 Personal history of nicotine dependence
CPT/HCPCS: 36415; 80053; 80061; 83036; 84439; 84443; 85025; G0103

== ENCOUNTER → 2023-10-05 | Outpatient (REF) | payer BC | LOC: M SFHCPLAZ 14:34 | PROVIDERS: ATTEND Family Medicine | DX: Z53.20 Procedure and treatment not carried out because of patient's decision for unspecified reasons (principal) ==

== ENCOUNTER → 2023-12-04 | Outpatient (CLI) | payer BC ==
[~2023-12-04] MED LIST changes: -ROSU10TA6 PO; +ROSU10TA61 PO
[2023-12-04 16:02] LABS: HEMATOCRIT 42.7 % (42.0-52.0); HEMOGLOBIN 14.7 g/dl (13.5-17.5); MEAN CORPUSCULAR HEMOGLOBIN 32.8 pg (27.0-33.0); MEAN CORPUSCULAR HGB CONC 34.4 g/dl (32.0-36.5); MEAN CORPUSCULAR VOLUME 95.3 fl (80.0-96.0); PLATELET COUNT, AUTOMATED 263 10^3/uL (150-450); RED BLOOD COUNT 4.48 10^6/uL (4.30-6.10)
[2023-12-04 16:29] LABS: ALBUMIN 3.6 G/DL (3.2-5.2); ALKALINE PHOSPHATASE 78 U/L (46-116); ALT/SGPT 24 U/L (7.0-40); AST/SGOT 18 U/L (<34); BILIRUBIN,TOTAL 0.5 MG/DL (0.3-1.2); BLOOD UREA NITROGEN 17 MG/DL (9-23); CALCIUM LEVEL 9.1 MG/DL (8.3-10.6); CARBON DIOXIDE LEVEL 28 MMOL/L (20-31); CHLORIDE LEVEL 107 MMOL/L (98-107); CREATININE FOR GFR 0.96 MG/DL (0.70-1.30); GLOMERULAR FILTRATION RATE > 60.0 (>49); GLUCOSE, FASTING 78 MG/DL (74-106); POTASSIUM SERUM 4.5 MMOL/L (3.5-5.1); SODIUM LEVEL 139 MMOL/L (136-145)
== END ==
LOC: M PLALAB 11:53
PROVIDERS: ATTEND Urology
DX: N50.3 Cyst of epididymis (principal)

== ENCOUNTER 2023-12-07 06:48 | Day surgery (SDC) | payer BC ==
[~2023-12-07] VITALS: Ht 180.3 cm; Wt 90.0 kg
[2023-12-07] MEDS ORDERED: LR 1,000 ML IV SCH ×2 (06:50→09:25)
[2023-12-07] MEDS: BACITRACIN OINTMENT 30GM TUBE As Ordered ONE (08:28)
[2023-12-07] MEDS: ceFAZolin SOD 2 GM in IV 1 EA IV ONE (08:46)
[2023-12-07] MEDS ORDERED: fentaNYL 100 MCG/2 ML INJECTION As Ordered ONE (08:57)
[2023-12-07] MEDS ORDERED: MIDAZOLAM INJ 2MG/2ML VIAL As Ordered ONE (08:57)
[2023-12-07] MEDS ORDERED: ONDANSETRON 4MG 2ML VIAL As Ordered ONE (08:57)
[2023-12-07] MEDS ORDERED: propofoL 200 MG/20 ML VIAL As Ordered ONE (08:57)
[2023-12-07] MEDS ORDERED: LIDOCAINE 2% 100MG/5ML SDV (FOR ANES.) As Ordered ONE (08:57)
[2023-12-07] MEDS ORDERED: dexmedeTOMIDine (4MCG/ML)200MCG/50ML BTL (PRECEDEX) As Ordered ONE (08:57)
[2023-12-07] MEDS ORDERED: ACETAMINOPHEN 1000MG 100ML IV BAG As Ordered ONE (08:57)
[2023-12-07] MEDS ORDERED: METOCLOPRAMIDE INJ 10MG/2ML VIAL As Ordered ONE (08:57)
[2023-12-07] MEDS: LIDOCAINE 1% SDV 30ML VIAL As Ordered ONE (09:19)
[2023-12-07] MEDS ORDERED: oxyCODONE 5MG TAB PO PRN (09:25)
[2023-12-07] MEDS ORDERED: fentaNYL 100 MCG/2 ML INJECTION IV PRN (09:25)
[2023-12-07] MEDS ORDERED: HYDROMORPHONE HCL 0.5 MG/ 0.5 ML SYRINGE IV PRN (09:25)
[2023-12-07] MEDS ORDERED: ONDANSETRON 4MG 2ML VIAL IV PRN (09:25)
[2023-12-07] MEDS ORDERED: HYDR-3713 PO (09:33)
[2023-12-07] MEDS ORDERED: CEPH500C PO (09:33)
[2023-12-07 11:10] VITALS: BP 121/65; TEMP 97.1; O2SAT 97
== END 2023-12-07 11:25 | disposition home or self-care (01) ==
LOC: M SDC 06:48
PROVIDERS: ATTEND Urology
DX: N50.3 Cyst of epididymis (principal); E78.5 Hyperlipidemia, unspecified; Z79.899 Other long term (current) drug therapy; F17.200 Nicotine dependence, unspecified, uncomplicated
CPT/HCPCS: 36415; 54840; 64640; 84132; 88304; J0131; J0665; J0690; J1100; J2250; J2405; J2765; J3010

== ENCOUNTER → 2024-04-18 | Outpatient (CLI) | payer BC ==
[~2024-04-18] MED LIST changes: +CEPH500C PO; +HYDR-3713 PO
== END ==
LOC: M RAD 16:34
PROVIDERS: ATTEND Nurse Practitioner Adult Health
DX: Z12.2 Encounter for screening for malignant neoplasm of respiratory organs (principal); Z87.891 Personal history of nicotine dependence; R91.8 Other nonspecific abnormal finding of lung field; N28.1 Cyst of kidney, acquired

== ENCOUNTER → 2024-10-05 | Outpatient (CLI) | payer BC ==
[2024-10-05 17:20] LABS: ALBUMIN 3.8 G/DL (3.2-5.2); ALKALINE PHOSPHATASE 69 U/L (40-129); ALT/SGPT 33 U/L (7.0-40); AST/SGOT 19 U/L (<34); BILIRUBIN,TOTAL 0.5 MG/DL (0.3-1.2); BLOOD UREA NITROGEN 16 MG/DL (9-23); CALCIUM LEVEL 8.7 MG/DL (8.3-10.6); CARBON DIOXIDE LEVEL 29 MMOL/L (20-31); CHLORIDE LEVEL 103 MMOL/L (98-107); CHOLESTEROL LEVEL 263 MG/DL (<200); CREATININE FOR GFR 0.92 MG/DL (0.70-1.30); GLOMERULAR FILTRATION RATE > 60.0 (>49); GLUCOSE, FASTING 81 MG/DL (74-106); HDL CHOLESTEROL 48.7 MG/DL (>40); LDL CHOLESTEROL 144.5 MG/DL (<100); NON-HDL-C 214.3 MG/DL; POTASSIUM SERUM 4.5 MMOL/L (3.5-5.1); PSA SCREENING 3.44 NG/ML (< 4.00); SODIUM LEVEL 141 MMOL/L (136-145); TOTAL PROTEIN 7.3 G/DL (5.7-8.2); TRIGLYCERIDES LEVEL 349 MG/DL (<150)
[2024-10-05 17:34] LABS: HEMOGLOBIN A1c 5.5 % (4.0-6.0)
[2024-10-05 17:36] LABS: HEMATOCRIT 43.7 % (42.0-52.0); HEMOGLOBIN 14.8 g/dl (13.5-17.5); MEAN CORPUSCULAR HEMOGLOBIN 32.7 pg (27.0-33.0); MEAN CORPUSCULAR HGB CONC 33.9 g/dl (32.0-36.5); MEAN CORPUSCULAR VOLUME 96.5 fl (80.0-96.0); PLATELET COUNT, AUTOMATED 231 10^3/uL (150-450); RED BLOOD COUNT 4.53 10^6/uL (4.30-6.10); WHITE BLOOD COUNT 6.4 10^3/uL (4.0-10.0)
== END ==
LOC: M PLALAB 14:31
PROVIDERS: ATTEND Nurse Practitioner Adult Health
DX: R73.9 Hyperglycemia, unspecified (principal)